=== PATIENT | female | born 1985 | race Hispanic/Latino ===

== ENCOUNTER 2022-07-07 16:03 | Emergency (ER) | payer OTHER, MEDICARE ==
[~2022-07-07] VITALS: Ht 160 cm; Wt 122.0 kg
[2022-07-07 16:58] LABS: HCG,QUALITATIVE URINE NEGATIVE (NEGATIVE)
[2022-07-07] MEDS ORDERED: 0.9%NACL 1000ML 1,000 ML IV ONE (17:00)
[2022-07-07] MEDS ORDERED: KETOROLAC 15MG/ML VIAL (15MG/ML) IV ONE (17:00)
[2022-07-07] MEDS ORDERED: ONDANSETRON 4MG INJ IVP ONE (17:00)
[2022-07-07] MEDS ORDERED: FAMOTIDINE 20MG VIAL IV ONE (17:00)
[2022-07-07 17:19] LABS: BASOPHILS % (AUTO) 0.3 % (0.0-5.0); EOSINOPHILS % (AUTO) 3.5 % (0.0-8.0); HEMATOCRIT 36.5 % (36-48); LYMPHOCYTES % (AUTO) 25.7 % (21.0-51.0); MEAN CORPUSCULAR HEMOGLOBIN 28.2 pg (27.0-33.0); MEAN CORPUSCULAR HGB CONC 31.5 g/dL (32.0-36.0); MEAN CORPUSCULAR VOLUME 89.5 fL (79-99); NEUTROPHILS % (AUTO) 55.8 % (40.0-77.0); PLATELET COUNT (AUTO) 292 K/uL (130-400); RED BLOOD CELL COUNT(AUTO) 4.08 MIL/uL (4.00-5.50); RED CELL DISTRIBUTION WIDTH 13.5 % (11.0-15.5); WHITE BLOOD COUNT (AUTO) 5.9 K/uL (4.8-10.8)
[2022-07-07 17:20] LABS: APPEARANCE,URINE CLEAR (CLEAR); BILIRUBIN,URINE NEGATIVE (NEGATIVE); COLOR,URINE LIGHT-YELLOW (YELLOW); GLUCOSE, URINE (UA) >=1000 mg/dL (NEGATIVE); KETONES,URINE NEGATIVE (NEGATIVE); LEUKOCYTE ESTERASE ,URINE NEGATIVE Leu/uL (NEGATIVE); NITRATE,URINE NEGATIVE (NEGATIVE); OCCULT BLOOD,URINE MODERATE (NEGATIVE); PH,URINE 5.5 (5.0-8.0); PROTEIN,URINE NEGATIVE (NEGATIVE); UROBILINOGEN,URINE 0.2 mg/dL (0.2-1.0)
[2022-07-07 17:30] VITALS: BP 124/68
[2022-07-07 17:48] LABS: CREATININE 1.2 mg/dL (0.5-1.5); POTASSIUM 4.2 mmol/L (3.5-5.1); TOTAL PROTEIN, SERUM 7.2 g/dL (6.0-8.3)
[2022-07-07 18:22] LABS: BACTERIA,URINE Rare /HPF (None Seen); SQUAMOUS EPITHELIAL CELL,UR None Seen /HPF (0-2); WBC,URINE 0-1 /HPF (0-1)
[2022-07-07] MEDS ORDERED: ACET-66 PO (19:19)
[2022-07-07] MEDS ORDERED: LOPE2 PO (19:19)
[2022-07-07] MEDS ORDERED: FAMO-136 PO (19:19)
[2022-07-07] MEDS ORDERED: ONDA4TAB10 PO (19:19)
[2022-07-07] MEDS ORDERED: BACI1CAP6 PO (19:19)
== END 2022-07-07 19:35 | disposition home or self-care (01) ==
LOC: EDH 16:03
DX: B34.9 Viral infection, unspecified (principal); Z20.822 Contact with and (suspected) exposure to COVID-19; F41.9 Anxiety disorder, unspecified; F32.A Depression, unspecified; E11.9 Type 2 diabetes mellitus without complications; E78.00 Pure hypercholesterolemia, unspecified; I10 Essential (primary) hypertension; E03.9 Hypothyroidism, unspecified; F43.10 Post-traumatic stress disorder, unspecified
CPT/HCPCS: 99284; 74176; 96374; 71045; 96375; 87635; 84484; 80053; 83690; 85025; 87040 ×2; 87880; 87804 ×2; 81001; 81025; 36415; 93005; C9803; J3490; J7030; J2405; J1885

== ENCOUNTER 2022-09-17 18:35 | Emergency (ER) | payer OTHER, MEDICARE ==
[~2022-09-17] VITALS: Ht 160 cm; Wt 121.1 kg
[~2022-09-17 18:35] MED LIST: ACET-66 PO; BACI1CAP6 PO; FAMO-136 PO; LOPE2 PO; ONDA4TAB10 PO
[2022-09-17] MEDS ORDERED: ALBUTEROL 0.083% 2.5 MG/3 ML INH IH ONE ×2 (18:45→21:00)
[2022-09-17 19:25] LABS: ALBUMIN 2.9 g/dL (3.5-5.0); CREATININE 1.1 mg/dL (0.5-1.5); POTASSIUM 5.3 mmol/L (3.5-5.1); TOTAL PROTEIN, SERUM 7.5 g/dL (6.0-8.3)
[2022-09-17 19:42] LABS: BASOPHILS % (AUTO) 0.1 % (0.0-5.0); HEMATOCRIT 36.9 % (36-48); LYMPHOCYTES % (AUTO) 9.2 % (21.0-51.0); MEAN CORPUSCULAR HGB CONC 32.2 g/dL (32.0-36.0); MEAN CORPUSCULAR VOLUME 89.8 fL (79-99); MONOCYTES % (AUTO) 4.2 % (3.0-13.0); NEUTROPHILS % (AUTO) 85.1 % (40.0-77.0); PLATELET COUNT (AUTO) 340 K/uL (130-400); RED BLOOD CELL COUNT(AUTO) 4.11 MIL/uL (4.00-5.50); WHITE BLOOD COUNT (AUTO) 14.6 K/uL (4.8-10.8)
[2022-09-17] MEDS ORDERED: INSULIN HUMULIN R 100 UNIT/ML 3ML SQ ONE (20:00)
[2022-09-17] MEDS ORDERED: SOLU-MEDROL 40MG VIAL IVP ONE (20:00)
[2022-09-17] MEDS ORDERED: 0.9%NACL 1000ML 1,000 ML IV ONE (20:30)
[2022-09-17 20:56] LABS: APPEARANCE,URINE CLEAR (CLEAR); BILIRUBIN,URINE NEGATIVE (NEGATIVE); COLOR,URINE COLORLESS (YELLOW); GLUCOSE, URINE (UA) >=1000 mg/dL (NEGATIVE); KETONES,URINE NEGATIVE (NEGATIVE); LEUKOCYTE ESTERASE ,URINE NEGATIVE Leu/uL (NEGATIVE); NITRATE,URINE NEGATIVE (NEGATIVE); OCCULT BLOOD,URINE NEGATIVE (NEGATIVE); PROTEIN,URINE NEGATIVE (NEGATIVE); UROBILINOGEN,URINE 0.2 mg/dL (0.2-1.0)
[2022-09-17 20:59] LABS: RBC,URINE 0-1 /HPF (0-1); SQUAMOUS EPITHELIAL CELL,UR RARE /HPF (0-2); WBC,URINE 0-1 /HPF (0-1)
[2022-09-17] MEDS ORDERED: ACETAMINOPHEN 500 MG TABLET PO ONE (21:00)
[2022-09-17 22:21] VITALS: BP 138/88
== END 2022-09-17 22:27 | disposition home or self-care (01) ==
LOC: EDH 18:35
DX: J45.901 Unspecified asthma with (acute) exacerbation (principal); R06.00 Dyspnea, unspecified; E11.9 Type 2 diabetes mellitus without complications; E78.00 Pure hypercholesterolemia, unspecified; I10 Essential (primary) hypertension; Z79.52 Long term (current) use of systemic steroids; Z79.899 Other long term (current) drug therapy
CPT/HCPCS: 99284; 96360; 71045; 84484; 80053; 85025; 82948; 81001; 36415; 93005; 94640 ×2; J7030; J2920

== ENCOUNTER 2022-12-02 17:47 | Emergency (ER) | payer OTHER, MEDICARE ==
[~2022-12-02] VITALS: Ht 160 cm; Wt 122.5 kg
[2022-12-02 18:09] VITALS: BP 161/93
[2022-12-02 18:36] LABS: APPEARANCE,URINE CLOUDY (CLEAR); BILIRUBIN,URINE NEGATIVE (NEGATIVE); COLOR,URINE LIGHT-YELLOW (YELLOW); GLUCOSE, URINE (UA) NEGATIVE (NEGATIVE); KETONES,URINE NEGATIVE (NEGATIVE); LEUKOCYTE ESTERASE ,URINE 500 Leu/uL (NEGATIVE); NITRATE,URINE NEGATIVE (NEGATIVE); OCCULT BLOOD,URINE LARGE (NEGATIVE); PROTEIN,URINE 50 mg/dL (NEGATIVE); UROBILINOGEN,URINE 0.2 mg/dL (0.2-1.0)
[2022-12-02 18:41] LABS: HCG,QUALITATIVE URINE NEGATIVE (NEGATIVE)
[2022-12-02 18:43] LABS: BACTERIA,URINE FEW /HPF (None Seen); MUCUS,URINE RARE LPF (None Seen); RBC,URINE 51-100 /HPF (0-1); SQUAMOUS EPITHELIAL CELL,UR RARE /HPF (0-2); WBC,URINE TNTC /HPF (0-1)
[2022-12-02 18:48] LABS: BASOPHILS % (AUTO) 0.5 % (0.0-5.0); EOSINOPHILS % (AUTO) 2.5 % (0.0-8.0); HEMATOCRIT 41.5 % (36-48); LYMPHOCYTES % (AUTO) 22.8 % (21.0-51.0); MEAN CORPUSCULAR HEMOGLOBIN 28.6 pg (27.0-33.0); MEAN CORPUSCULAR VOLUME 89.2 fL (79-99); NEUTROPHILS % (AUTO) 63.2 % (40.0-77.0); PLATELET COUNT (AUTO) 304 K/uL (130-400); RED BLOOD CELL COUNT(AUTO) 4.65 MIL/uL (4.00-5.50); RED CELL DISTRIBUTION WIDTH 13.8 % (11.0-15.5); WHITE BLOOD COUNT (AUTO) 8.7 K/uL (4.8-10.8)
[2022-12-02 19:04] LABS: CREATININE 1.1 mg/dL (0.5-1.5); POTASSIUM 3.6 mmol/L (3.5-5.1)
[2022-12-02 19:10] LABS: ALBUMIN 3.3 g/dL (3.5-5.0); TOTAL PROTEIN, SERUM 7.5 g/dL (6.0-8.3)
[2022-12-02] MEDS ORDERED: DIPHENOXYLATE HCL/ATROPINE 2.5/0.025 MG TAB PO ONE (20:00)
[2022-12-02] MEDS ORDERED: LACTATED RINGERS 1000ML 2,000 ML IV ONE (20:00)
[2022-12-02] MEDS ORDERED: ONDANSETRON 4MG INJ IVP ONE (20:00)
[2022-12-02] MEDS ORDERED: ONDA4TAB10 PO (20:44)
[2022-12-02] MEDS ORDERED: DIPH1TAB PO (20:44)
== END 2022-12-02 21:21 | disposition home or self-care (01) ==
LOC: EDH 17:47
DX: K52.9 Noninfective gastroenteritis and colitis, unspecified (principal); I10 Essential (primary) hypertension; E78.00 Pure hypercholesterolemia, unspecified; E11.9 Type 2 diabetes mellitus without complications; J45.909 Unspecified asthma, uncomplicated; Z79.899 Other long term (current) drug therapy
CPT/HCPCS: 99283; 96374; 96361; 84484; 80053; 83690; 85025; 87077; 87088; 87186; 81001; 81025; 36415; J7120; J2405

== ENCOUNTER 2023-03-01 12:24 | Emergency (ER) | payer OTHER, MEDICARE ==
[~2023-03-01] VITALS: Ht 160 cm; Wt 108.0 kg
[~2023-03-01 12:24] MED LIST changes: -ACET-66 PO; +DIPH1TAB PO; -LOPE2 PO
[2023-03-01 12:43] LABS: BASOPHILS % (AUTO) 0.8 % (0.0-5.0); EOSINOPHILS % (AUTO) 2.2 % (0.0-8.0); HEMATOCRIT 42.2 % (36-48); LYMPHOCYTES % (AUTO) 30.2 % (21.0-51.0); MEAN CORPUSCULAR HEMOGLOBIN 27.9 pg (27.0-33.0); MEAN CORPUSCULAR HGB CONC 32.2 g/dL (32.0-36.0); MEAN CORPUSCULAR VOLUME 86.7 fL (79-99); NEUTROPHILS % (AUTO) 60.4 % (40.0-77.0); PLATELET COUNT (AUTO) 305 K/uL (130-400); RED BLOOD CELL COUNT(AUTO) 4.87 MIL/uL (4.00-5.50); RED CELL DISTRIBUTION WIDTH 13.2 % (11.0-15.5); WHITE BLOOD COUNT (AUTO) 7.3 K/uL (4.8-10.8)
[2023-03-01 12:51] LABS: CREATININE 0.9 mg/dL (0.5-1.5); POTASSIUM 4.6 mmol/L (3.5-5.1)
[2023-03-01 12:56] LABS: ALBUMIN 3.1 g/dL (3.5-5.0); TOTAL PROTEIN, SERUM 7.8 g/dL (6.0-8.3)
[2023-03-01] MEDS ORDERED: FAMOTIDINE 20MG VIAL IV ONE (14:30)
[2023-03-01] MEDS ORDERED: 0.9%NACL 1000ML 1,572 ML IV ONE (14:30)
[2023-03-01] MEDS ORDERED: METOCLOPRAMIDE 10 MG/2 ML VIAL IVP ONE (14:30)
[2023-03-01] MEDS ORDERED: KETOROLAC 15MG/ML VIAL (15MG/ML) IV ONE (14:30)
[2023-03-01] MEDS ORDERED: INSULIN HUMULIN R 100 UNIT/ML 3ML IV ONE (14:30)
[2023-03-01 15:06] LABS: ABG BASE EXCESS -4.3 mmol/L (-2.0-3.0); ABG HCO3 19.4 mmol/L (21.0-28.0); ABG OXYGEN SATURATION 96.2 % (95.0-99.0); ABG PCO2 32 mmHg (32-45)
[2023-03-01 17:18] VITALS: BP 132/78
== END 2023-03-01 17:19 | disposition home or self-care (01) ==
LOC: EDH 12:24
DX: E11.65 Type 2 diabetes mellitus with hyperglycemia (principal); E66.01 Morbid (severe) obesity due to excess calories; E87.1 Hypo-osmolality and hyponatremia; E03.9 Hypothyroidism, unspecified; E78.00 Pure hypercholesterolemia, unspecified; I10 Essential (primary) hypertension; J45.909 Unspecified asthma, uncomplicated; Z79.899 Other long term (current) drug therapy
CPT/HCPCS: 99283; 96374; 71045; 96375; 96361; 82550; 84484 ×2; 80053; 82803; 83690; 85025; 82010; 36415; 74018; 93005; 36600; J1815; J3490; J7030; J2765; J1885

== ENCOUNTER → 2023-06-02 | Outpatient (CLI) | payer OTHER, MEDICARE | END | disposition home or self-care (01) | LOC: LAB 10:08 | PROVIDERS: ATTEND Internal Medicine Cardiovascular Disease | DX: R00.2 Palpitations (principal); R07.9 Chest pain, unspecified; I73.9 Peripheral vascular disease, unspecified; R55 Syncope and collapse | CPT/HCPCS: 36415; 83721 ==